=== PATIENT | female | born 2000 | race Two or more races ===

== ENCOUNTER 2021-09-02 09:05 | Observation (INO) | payer MEDICAID ==
[~2021-09-02] VITALS: Ht 162.6 cm; Wt 77.1 kg
[2021-09-02] MEDS ORDERED: PREN-96 PO (10:57)
[2021-09-02] MEDS ORDERED: FERR-7 PO (10:58)
[2021-09-02] MEDS ORDERED: LABE100T4 PO (10:58)
== END 2021-09-02 11:05 | disposition home or self-care (01) ==
LOC: LDRP 09:05
PROVIDERS: ADMIT Obstetrics & Gynecology; ATTEND Obstetrics & Gynecology
DX: O10.913 Unspecified pre-existing hypertension complicating pregnancy, third trimester (principal); Z3A.29 29 weeks gestation of pregnancy
CPT/HCPCS: 59025; 76818; 81002; G0378

== ENCOUNTER 2021-09-08 07:39 | Observation (INO) | payer MEDICAID ==
[~2021-09-08 07:39] MED LIST: FERR-7 PO; LABE100T4 PO; PREN-96 PO
== END 2021-09-08 11:14 | disposition home or self-care (01) ==
LOC: LDRP 08:13
PROVIDERS: ADMIT Obstetrics & Gynecology; ATTEND Obstetrics & Gynecology
DX: O10.913 Unspecified pre-existing hypertension complicating pregnancy, third trimester (principal); Z3A.30 30 weeks gestation of pregnancy
CPT/HCPCS: 59025; 76818; 81002; 94760; G0378

== ENCOUNTER 2021-09-16 07:49 | Observation (INO) | payer MEDICAID | END 2021-09-16 10:05 | disposition home or self-care (01) | LOC: LDRP 08:38 | PROVIDERS: ADMIT Obstetrics & Gynecology; ATTEND Obstetrics & Gynecology | DX: O10.913 Unspecified pre-existing hypertension complicating pregnancy, third trimester (principal); Z3A.31 31 weeks gestation of pregnancy | CPT/HCPCS: 59025; 76818; 81002; 94760; G0378; G0379 ==

== ENCOUNTER 2021-09-23 08:23 | Observation (INO) | payer MEDICAID | END 2021-09-23 10:50 | disposition home or self-care (01) | LOC: LDRP 09:15 | PROVIDERS: ADMIT Obstetrics & Gynecology; ATTEND Obstetrics & Gynecology | DX: O10.913 Unspecified pre-existing hypertension complicating pregnancy, third trimester (principal); Z3A.32 32 weeks gestation of pregnancy | CPT/HCPCS: 59025; 76818; 81002; G0378; G0379 ==

== ENCOUNTER 2021-09-30 08:43 | Observation (INO) | payer MEDICAID | END 2021-09-30 10:14 | disposition home or self-care (01) | LOC: LDRP 08:43 | PROVIDERS: ADMIT Obstetrics & Gynecology; ATTEND Obstetrics & Gynecology | DX: O24.419 Gestational diabetes mellitus in pregnancy, unspecified control (principal); O10.913 Unspecified pre-existing hypertension complicating pregnancy, third trimester; Z3A.33 33 weeks gestation of pregnancy | CPT/HCPCS: 59025; 76818; 81002; 94760; G0378 ==

== ENCOUNTER 2021-10-08 09:00 | Observation (INO) | payer MEDICAID | END 2021-10-08 10:39 | disposition home or self-care (01) | LOC: LDRP 09:00 | PROVIDERS: ADMIT Obstetrics & Gynecology; ATTEND Obstetrics & Gynecology | DX: O13.3 Gestational [pregnancy-induced] hypertension without significant proteinuria, third trimester (principal); Z3A.34 34 weeks gestation of pregnancy | CPT/HCPCS: 59025; 76818; 81002; 94760; G0378 ==

== ENCOUNTER 2021-10-15 09:57 | Observation (INO) | payer MEDICAID | END 2021-10-15 12:25 | disposition home or self-care (01) | LOC: LDRP 10:20 | PROVIDERS: ADMIT Obstetrics & Gynecology; ATTEND Obstetrics & Gynecology | DX: O10.913 Unspecified pre-existing hypertension complicating pregnancy, third trimester (principal); Z3A.35 35 weeks gestation of pregnancy | CPT/HCPCS: 59025; 76818; 81002; 94760; G0378 ==

== ENCOUNTER 2021-10-22 08:27 | Observation (INO) | payer MEDICAID | END 2021-10-22 11:32 | disposition home or self-care (01) | LOC: LDRP 09:27 | PROVIDERS: ADMIT Obstetrics & Gynecology; ATTEND Obstetrics & Gynecology | DX: O10.913 Unspecified pre-existing hypertension complicating pregnancy, third trimester (principal); Z3A.36 36 weeks gestation of pregnancy | CPT/HCPCS: 59025; 76818; 81002; 94760; G0378 ==

== ENCOUNTER 2021-10-28 08:55 | Observation (INO) | payer MEDICAID | END 2021-10-28 11:19 | disposition home or self-care (01) | LOC: LDRP 08:55 | PROVIDERS: ADMIT Obstetrics & Gynecology; ATTEND Obstetrics & Gynecology | DX: O10.913 Unspecified pre-existing hypertension complicating pregnancy, third trimester (principal); Z3A.37 37 weeks gestation of pregnancy | CPT/HCPCS: 59025; 76818; 81002; 94760; G0378 ==

== ENCOUNTER 2021-11-05 08:00 | Observation (INO) | payer MEDICAID | END 2021-11-05 09:46 | disposition home or self-care (01) | LOC: LDRP 08:00 | PROVIDERS: ADMIT Obstetrics & Gynecology; ATTEND Obstetrics & Gynecology | DX: O10.913 Unspecified pre-existing hypertension complicating pregnancy, third trimester (principal); Z3A.38 38 weeks gestation of pregnancy; Z87.891 Personal history of nicotine dependence | CPT/HCPCS: 59025; 76818; 81002; 94760; G0378 ==

== ENCOUNTER 2021-11-05 11:09 | Emergency (ER) | payer MEDICAID ==
[~2021-11-05] VITALS: Ht 157.5 cm; Wt 84.8 kg
[2021-11-05] MEDS ORDERED: PENICILLIN G BENZ 1200000 UNITS/2 ML SYRG IM ONE (11:30)
[2021-11-05 11:54] VITALS: BP 133/87
== END 2021-11-05 12:02 | disposition home or self-care (01) ==
LOC: ER 11:09
DX: O98.113 Syphilis complicating pregnancy, third trimester (principal); Z3A.38 38 weeks gestation of pregnancy
CPT/HCPCS: 96372; 99283; J0561

== ENCOUNTER 2021-11-11 08:47 | Observation (INO) | payer MEDICAID | END 2021-11-11 11:37 | disposition home or self-care (01) | LOC: LDRP 08:47 | PROVIDERS: ADMIT Obstetrics & Gynecology; ATTEND Obstetrics & Gynecology | DX: O40.3XX0 Polyhydramnios, third trimester, not applicable or unspecified (principal); O62.9 Abnormality of forces of labor, unspecified; O16.3 Unspecified maternal hypertension, third trimester; Z3A.39 39 weeks gestation of pregnancy | CPT/HCPCS: 59025; 76818; 81002; 94760; G0378 ==

== ENCOUNTER 2021-11-12 10:53 | Emergency (ER) | payer MEDICAID ==
[~2021-11-12] VITALS: Ht 157.5 cm; Wt 80.7 kg
[~2021-11-12 10:53] MED LIST changes: -FERR-7 PO
[2021-11-12 11:57] VITALS: BP 130/77
[2021-11-12] MEDS ORDERED: PENICILLIN G BENZ 1200000 UNITS/2 ML SYRG IM ONE (12:00)
== END 2021-11-12 12:20 | disposition home or self-care (01) ==
LOC: ER 10:53
DX: O98.113 Syphilis complicating pregnancy, third trimester (principal); O16.3 Unspecified maternal hypertension, third trimester; Z79.899 Other long term (current) drug therapy; Z3A.39 39 weeks gestation of pregnancy
CPT/HCPCS: 96372; 99283; J0561

== ENCOUNTER 2021-11-13 08:41 | Inpatient (IN) | payer MEDICAID ==
[~2021-11-13] VITALS: Ht 154.9 cm; Wt 81.6 kg
[2021-11-13 10:23] LABS: Basophils # (auto) 0.2 10 ^3/uL (0-0.2); Basophils % (auto) 1.1 % (0.0-2.0); Eosinophils # (auto) 0 10 ^3/uL (0-0.8); Eosinophils % (auto) 0.1 % (0.0-7.0); Hematocrit 38.4 % (36.0-46.0); Hemoglobin 13.1 g/dL (12.2-16.2); Lymphocytes % (auto) 6.7 % (10.0-50.0); Mean Corpuscular Hemoglobin 29.9 pg (28.0-32.0); Mean Corpuscular Hgb Conc. 34.1 g/dL (32.0-36.0); Mean Corpuscular Volume 87.7 fL (80.0-100.0); Monocytes # (auto) 0.5 10 ^3/uL (0-1.3); Monocytes % (auto) 3.2 % (0.0-12.0); Neutrophils # (auto) 13.8 10 ^3/uL (1.6-8.6); Neutrophils % (auto) 88.9 % (37.0-80.0); Nucleated Red Blood Cells % 0.1 %; Red Blood Cells 4.38 10^6/uL (4.0-5.20); Red Cell Distribution Width 14.1 % (11.8-14.3); White Blood Cell 15.5 10^3/uL (4.4-10.8)
[2021-11-13 10:37] LABS: Urine Bacteria FEW /hpf (None Seen); Urine Blood Negative /uL (Negative); Urine Mucus FEW (None Seen); Urine Specific Gravity 1.014 (1.001-1.035); Urine WBC 1 /hpf (0 - 5)
[2021-11-13 10:41] LABS: INR 0.93 (0.9-1.15); Partial Thromboplastin Time 27.8 sec (23.6-33.0)
[2021-11-13 11:00] LABS: Protein, Urine 25.4 mg/dL (0.0-11.9)
[2021-11-13 11:06] LABS: Potassium 3.8 mmol/L (3.5-5.1)
[2021-11-13 11:14] LABS: Albumin 2.9 g/dL (3.4-5.0); BUN/Creatinine Ratio 11.6; Bilirubin, Total 0.6 mg/dL (0.2-1.0); Calcium 9.2 mg/dL (8.5-10.1); Total Protein 7.1 g/dL (6.4-8.2); Uric Acid 3.5 mg/dL (2.6-6.0)
[2021-11-13] MEDS ORDERED: WITCH HAZEL-GLYCERIN PAD TOP PRN (12:00)
[2021-11-13] MEDS ORDERED: PHISODERM TOP SOLN 240ML BTL TOP PRN (12:00)
[2021-11-13] MEDS ORDERED: LIDOCAINE 2%HCL (LOCAL ANESTH.) INJ 20ML MDV IJ PRN (12:00)
[2021-11-13] MEDS ORDERED: ePHEDrine SULFATE 50 MG/ML AMP IV ONE (12:00)
[2021-11-13] MEDS ORDERED: LACTATED RINGER'S 1,000 ML IV ONE (12:00)
[2021-11-13] MEDS ORDERED: PROMETHAZINE HCL 25 MG/ML 1ML IV PRN (12:00)
[2021-11-13] MEDS ORDERED: NALOXONE HCL 0.4 MG/ML VIAL IV ONE (12:00)
[2021-11-13] MEDS ORDERED: BUTORPHANOL TARTRATE 2 MG/1 ML VIAL IV PRN ×2 (12:00)
[2021-11-13] MEDS ORDERED: LIDOCAINE HCL 2 %PF INJ 10ML AMP IJ ONE (12:00)
[2021-11-13] MEDS ORDERED: DERMOPLAST 60ML BOTTLE TOP PRN (12:00)
[2021-11-13] MEDS ORDERED: fentaNYL CITRATE 100 MCG/2 ML VL IV ONE (12:00)
[2021-11-13] MEDS ORDERED: PENICILLIN G POT 5MIL/D5 50ML 50 ML IV ONE (12:30)
[2021-11-13] MEDS: LACTATED RINGER'S 1,000 ML IV SCH ×3 (12:42→18:34)
[2021-11-13 13:44] LABS: Alcohol, Urine < 3.0 mg/dL (0-10); Amphetamine Screen, Urine NEGATIVE (NEGATIVE); Barbiturate Scree,Urine NEGATIVE (NEGATIVE); Benzodiazephine Screen, Urine NEGATIVE (NEGATIVE); Cannabinoid Screen, Urine NEGATIVE (NEGATIVE); Cocaine Screen, Urine NEGATIVE (NEGATIVE); Opiate Scree,Urine NEGATIVE (NEGATIVE); Phencyclidine Screen, Urine NEGATIVE (NEGATIVE)
[2021-11-13] MEDS: ROPIVACAINE HCL 200 ML EPI SCH (14:50)
[2021-11-13] MEDS: PENICILLIN G POTASSIUM 2,500,000 UNITS in D5W 5% 50 ML IV SCH ×2 (16:38→20:22)
[2021-11-13] MEDS ORDERED: LACT. RINGERS/OXYTOCIN 20UNITS 500 ML IV ONE ×2 (16:45→17:15)
[2021-11-14] MEDS ORDERED: LACT. RINGERS/OXYTOCIN 20UNITS 1,000 ML IV SCH
[2021-11-14] MEDS: PENICILLIN G POTASSIUM 2,500,000 UNITS in D5W 5% 50 ML IV SCH (00:17)
[2021-11-14] MEDS: ROPIVACAINE HCL 200 ML EPI SCH (01:46)
[2021-11-14] MEDS ORDERED: miSOPROStol 100 mcg TAB SL PRN (05:45)
[2021-11-14] MEDS ORDERED: ACETAMINOPHEN 325 MG TAB PO PRN (05:45)
[2021-11-14] MEDS ORDERED: miSOPROStol 100 mcg TAB PR PRN (05:45)
[2021-11-14] MEDS: IBUPROFEN 600 MG TAB PO PRN ×2 (06:00→17:15)
[2021-11-14 06:45] VITALS: BP 137/74
[2021-11-14 07:06] LABS: RPR Non Reactive (Non Reactive)
[2021-11-14 10:30] VITALS: BP 140/80
[2021-11-14 15:30] VITALS: BP 136/87
[2021-11-14 19:30] VITALS: BP 138/76
[2021-11-14 23:00] VITALS: BP 140/84
[2021-11-15 03:00] VITALS: BP 146/80
[2021-11-15 07:10] VITALS: BP 130/77
[2021-11-15] MEDS: IBUPROFEN 600 MG TAB PO PRN (07:52)
[2021-11-15 07:57] VITALS: BP 130/77
[2021-11-15 11:00] VITALS: BP 138/85
[2021-11-15 15:00] VITALS: BP 142/83
[2021-11-15] MEDS ORDERED: MEASLES, MUMPS & RUBELLA VAC(MMRII) 0.5ML SC ONE (17:00)
== END 2021-11-15 17:20 | disposition home or self-care (01) | DRG 560 ==
LOC: LDRP 08:41 → OBSVTOIN 11:46 → LDRP 11:53
PROVIDERS: ADMIT Obstetrics & Gynecology; ATTEND Obstetrics & Gynecology
PROC: 10E0XZZ Delivery of Products of Conception, External Approach (ICD-10-PCS; principal; 2021-11-14)
PROC: 3E0R3BZ Introduction of Anesthetic Agent into Spinal Canal, Percutaneous Approach (ICD-10-PCS; 2021-11-14)
PROC: 00HU33Z Insertion of Infusion Device into Spinal Canal, Percutaneous Approach (ICD-10-PCS; 2021-11-14)
DX: O13.4 Gestational [pregnancy-induced] hypertension without significant proteinuria, complicating childbirth (principal); Z37.0 Single live birth; O99.824 Streptococcus B carrier state complicating childbirth; Z20.822 Contact with and (suspected) exposure to COVID-19; Z3A.40 40 weeks gestation of pregnancy
CPT/HCPCS: 36415; 59025; 59409; 62282; 80053; 80307; 81001; 81002; 82570; 84156; 84550; 85025; 85610; 85730; 86592; 86850; 86900; 86901; 94760; 94762; 96360; 96361; 96365; 96366; 96372; G0378; J2540; J2590; J7060

== ENCOUNTER 2021-11-17 09:08 | Emergency (ER) | payer MEDICAID ==
[~2021-11-17] VITALS: Ht 157.5 cm; Wt 80.7 kg
[2021-11-17 09:59] VITALS: BP 149/78
[2021-11-17] MEDS: PENICILLIN G BENZ 1200000 UNITS/2 ML SYRG IM ONE (10:27)
== END 2021-11-17 10:30 | disposition home or self-care (01) ==
LOC: ER 09:08
DX: O98.113 Syphilis complicating pregnancy, third trimester (principal); Z3A.38 38 weeks gestation of pregnancy
CPT/HCPCS: 96372; 99283; J0561

== ENCOUNTER → 2022-01-15 | Outpatient (CLI) | payer MEDICAID | END | disposition home or self-care (01) | LOC: LAB 10:03 | PROVIDERS: ATTEND Obstetrics & Gynecology | DX: R76.8 Other specified abnormal immunological findings in serum (principal) | CPT/HCPCS: 84112 ==

== ENCOUNTER → 2024-08-15 | Outpatient (CLI) | payer MEDICAID ==
[~2024-08-15] MED LIST changes: -LABE100T4 PO; +LABE100T7 PO
[2024-08-15 10:00] LABS: Basophils # (auto) 0 10 ^3/uL (0-0.2); Basophils % (auto) 0.3 % (0.0-2.0); Eosinophils # (auto) 0.1 10 ^3/uL (0-0.8); Eosinophils % (auto) 0.8 % (0.0-7.0); Hematocrit 36.2 % (36.0-46.0); Hemoglobin 12.1 g/dL (12.2-16.2); Lymphocytes # (auto) 1.9 10 ^3/uL (0.4-5.4); Lymphocytes % (auto) 17.1 % (10.0-50.0); Mean Corpuscular Hemoglobin 29.1 pg (28.0-32.0); Mean Corpuscular Hgb Conc. 33.6 g/dL (32.0-36.0); Mean Corpuscular Volume 86.6 fL (80.0-100.0); Monocytes # (auto) 0.6 10 ^3/uL (0-1.3); Monocytes % (auto) 5.2 % (0.0-12.0); Neutrophils # (auto) 8.7 10 ^3/uL (1.6-8.6); Neutrophils % (auto) 76.6 % (37.0-80.0); Platelet Count (auto) 311 10^3/uL (140-450); Red Blood Cells 4.18 10^6/uL (4.0-5.20); Red Cell Distribution Width 13.5 % (11.8-14.3); White Blood Cell 11.4 10^3/uL (4.4-10.8)
[2024-08-16 08:06] LABS: RPR Non Reactive (Non Reactive)
[2024-08-16 17:06] LABS: Chlamydia Trachomatis, NAA Negative (Negative); Neisseria gonorrhoeae, NAA Negative (Negative)
== END | disposition home or self-care (01) ==
LOC: LAB 09:39
PROVIDERS: ATTEND Obstetrics & Gynecology
DX: Z11.3 Encounter for screening for infections with a predominantly sexual mode of transmission (principal)
CPT/HCPCS: 36415; 85025; 86592

== ENCOUNTER 2024-08-22 10:00 | Observation (INO) | payer MEDICAID ==
--- NOTE | 2024-08-22 11:32 | DVH ---
BIOPHYSICAL PROFILE HISTORY: PIH Comparison Study: 11/11/2021 TECHNIQUE: Multiple real-time grayscale sonographic images through the gravid uterus of the fetus wi th duplex Doppler color flow and M-mode spectral analysis FINDINGS: BIOPHYSICAL PROFILE: breathing score: 2 movement score: 2 tone score: 2 Quantitative CHARLES score: 2 (CHARLES: 11.0 Cm.) Total score: 8 The cervix is not visualized Single live fetus in cephalic presentation. heart rate 137 beats per minute. Anterior placenta without previa or abruption IMPRESSION: Biophysical profile score: 8
[2024-08-22 11:33] LABS: Basophils # (auto) 0 10 ^3/uL (0-0.2); Basophils % (auto) 0.2 % (0.0-2.0); Eosinophils # (auto) 0.1 10 ^3/uL (0-0.8); Eosinophils % (auto) 0.5 % (0.0-7.0); Hematocrit 35.6 % (36.0-46.0); Hemoglobin 11.8 g/dL (12.2-16.2); Lymphocytes # (auto) 1.8 10 ^3/uL (0.4-5.4); Lymphocytes % (auto) 15.6 % (10.0-50.0); Mean Corpuscular Hemoglobin 28.7 pg (28.0-32.0); Mean Corpuscular Hgb Conc. 33.2 g/dL (32.0-36.0); Mean Corpuscular Volume 86.6 fL (80.0-100.0); Monocytes # (auto) 0.6 10 ^3/uL (0-1.3); Monocytes % (auto) 4.9 % (0.0-12.0); Neutrophils # (auto) 9.2 10 ^3/uL (1.6-8.6); Neutrophils % (auto) 78.8 % (37.0-80.0); Platelet Count (auto) 294 10^3/uL (140-450); Red Blood Cells 4.11 10^6/uL (4.0-5.20); Red Cell Distribution Width 13.6 % (11.8-14.3); White Blood Cell 11.7 10^3/uL (4.4-10.8)
[2024-08-22 11:38] LABS: Alanine Aminotransferase 14 U/L (7-40); Albumin 3.9 g/dL (3.2-4.8); Anion Gap 7 (5-15); BUN/Creatinine Ratio 9.8 (10.0-20.0); Calcium 9.4 mg/dL (8.7-10.4); Carbon Dioxide 23 mmol/L (20-31); Chloride 107 mmol/L (98-107); Glucose 78 mg/dL (74-106); Potassium 3.9 mmol/L (3.5-5.1); Sodium 137 mmol/L (136-145); Uric Acid 4.3 mg/dL (3.1-7.8)
[2024-08-22 11:39] LABS: Alkaline Phosphatase 131 U/L (46-116); Aspartate Aminotransferase 10 U/L (13-40); Bilirubin, Total 0.5 mg/dL (0.2-1.0); Blood Urea Nitrogen 5 mg/dL (9-23); Total Protein 6.7 g/dL (5.7-8.2)
[2024-08-22 11:40] LABS: INR 0.96 (0.9-1.15); Partial Thromboplastin Time 27.3 SEC (24.5-34.5); Prothrombin Time 10.2 sec (9.3-11.8)
--- NOTE | 2024-08-22 11:58 | DVHDS2 ---
Physician Discharge Progress N Final Diagnosis: chtn Operations or Procedures: Operations or Procedures nst,sono Condition on Discharge: Good Disposition: Home Discharge Instructions: Diet: Regular, Cardiac 2g Na,low cholest (2 gm sodium, low cholesterol) Activity: No Restrictions, As Tolerated Medications: labetolol Follow Up Care: Specialist: 4d Discharge Statement: "Patient was advised to return to the ER or call 911 if any headaches, dizziness, shortness of breath, chest pain, abdominal pain, bleeding, fevers, or worsening of medical condition. Patient was counseled about treatment plan, medications, possible side effects, patientverbalized understanding. All questions were answered to the best of my ability. This discharge took greater then 30 minutes in planning, reviewing documentation, counseling the patient, and discussing with other team members." MARLENE RODRIGUEZ DO Aug 22, 2024 11:58
[2024-08-22 12:14] LABS: Urine Bacteria FEW /hpf (None Seen); Urine Blood Negative /uL (Negative); Urine Clarity Turbid (Clear); Urine Color Light-Yellow (Yellow); Urine Mucus FEW (None Seen); Urine Protein, UAD Negative (Negative); Urine Specific Gravity 1.009 (1.001-1.035); Urine Squamous Epithelial Cell MOD /hpf (<5); Urine Urobilinogen Normal (Negative); Urine WBC 2 /hpf (0 - 5)
[2024-08-22 13:02] LABS: Protein, Urine 12.7 mg/dL (1-14)
[2024-08-22 13:05] LABS: Creatinine, Urine 51.02 mg/dL (30.0-125.0); Urine Protein/Creatinine Ratio 0.25
== END 2024-08-22 12:00 | disposition home or self-care (01) ==
LOC: UNDOADMOB 10:00 → LDRP 10:00
PROVIDERS: ADMIT Obstetrics & Gynecology; ATTEND Obstetrics & Gynecology
DX: O13.3 Gestational [pregnancy-induced] hypertension without significant proteinuria, third trimester (principal); Z98.890 Other specified postprocedural states; Z79.899 Other long term (current) drug therapy; Z3A.36 36 weeks gestation of pregnancy
CPT/HCPCS: 36415; 59025; 76818; 80053; 81001; 81002; 82570; 84156; 84550; 85025; 85610; 85730; 94760; G0378

== ENCOUNTER 2024-08-27 09:33 | Observation (INO) | payer MEDICAID ==
--- NOTE | 2024-08-27 11:29 | DVH ---
CLINICAL HISTORY: -induced hypertension. COMPARISON: US BIOPHYSICAL PROFILE on DOS: 08/22/24, BIOPHYSICAL PROFILE on DOS: 10/28/21, BIOPHYSICAL PROFILE on DOS: 10/22/21 TECHNIQUE: biophysical profile was performed. Transabdominal sonographic images of the fetus we re obtained. FINDINGS: The fetus is in cephalic position. heart rate measures 130 BPM. Amniotic fluid index measures 9.6 cm. The placenta is anterior in position. BPP profile is an overall score of 8/8, with 2/2 points for breathing, with at least one episode of breathing over a 30 second duration during a 30 minute observation, 2/2 points for m ovements, with 3 or more discrete body or limb movements, 2/2 points for tone, with one or more episodes of extremity extension with return to flexion, or opening and closing of hand, and 2/ 2 points for amniotic fluid, with at least 1 pocket of amniotic fluid that measures 2 cm in 2 perpend icular planes. IMPRESSION: BPP score of 8/8.
--- NOTE | 2024-08-27 12:25 | DVHDS2 ---
Physician Discharge Progress N Final Diagnosis: chtn Operations or Procedures: Operations or Procedures nst,sono Other Interventions Other Interventions refuses to come back twice per wk understamnds the risk of iufd Condition on Discharge: Good Disposition: Home Discharge Instructions: Diet: Regular Activity: No Restrictions, As Tolerated Medications: na Follow Up Care: Specialist: 3d Discharge Statement: "Patient was advised to return to the ER or call 911 if any headaches, dizziness, shortness of breath, chest pain, abdominal pain, bleeding, fevers, or worsening of medical condition. Patient was counseled about treatment plan, medications, possible side effects, patientverbalized understanding. All questions were answered to the best of my ability. This discharge took greater then 30 minutes in planning, reviewing documentation, counseling the patient, and discussing with other team members." MARLENE RODRIGUEZ DO Aug 27, 2024 12:25
== END 2024-08-27 11:12 | disposition home or self-care (01) ==
LOC: LDRP 09:33
PROVIDERS: ADMIT Obstetrics & Gynecology; ATTEND Obstetrics & Gynecology
DX: O13.3 Gestational [pregnancy-induced] hypertension without significant proteinuria, third trimester (principal); Z98.890 Other specified postprocedural states; Z79.899 Other long term (current) drug therapy; Z3A.37 37 weeks gestation of pregnancy
CPT/HCPCS: 59025; 76818; 81002; 94760; G0378

== ENCOUNTER 2024-09-02 09:55 | Observation (INO) | payer MEDICAID ==
--- NOTE | 2024-09-02 10:43 | DVH ---
BIOPHYSICAL PROFILE HISTORY: PIH TECHNIQUE: Multiple transabdominal real-time grayscale sonographic images through the gravid uterus of the fetus with duplex Doppler color flow and M-mode spectral analysis FINDINGS: BIOPHYSICAL PROFILE: breathing score: 2 movement score: 2 tone score: Quantitative CHARLES score: 2 (CHARLES: 12.6 Cm.) Total score: 8/8 Single intrauterine . heart rate is present measuring 138 beats per minute IMPRESSION: 1. Biophysical profile score: 8/8.
[2024-09-02 11:18] LABS: Basophils # (auto) 0 10 ^3/uL (0-0.2); Basophils % (auto) 0.4 % (0.0-2.0); Eosinophils # (auto) 0.1 10 ^3/uL (0-0.8); Eosinophils % (auto) 0.6 % (0.0-7.0); Hematocrit 35.2 % (36.0-46.0); Hemoglobin 11.9 g/dL (12.2-16.2); Lymphocytes # (auto) 1.7 10 ^3/uL (0.4-5.4); Lymphocytes % (auto) 16.1 % (10.0-50.0); Mean Corpuscular Hemoglobin 29.4 pg (28.0-32.0); Mean Corpuscular Hgb Conc. 33.9 g/dL (32.0-36.0); Mean Corpuscular Volume 86.5 fL (80.0-100.0); Monocytes # (auto) 0.5 10 ^3/uL (0-1.3); Monocytes % (auto) 4.5 % (0.0-12.0); Neutrophils # (auto) 8.2 10 ^3/uL (1.6-8.6); Neutrophils % (auto) 78.4 % (37.0-80.0); Platelet Count (auto) 256 10^3/uL (140-450); Red Blood Cells 4.06 10^6/uL (4.0-5.20); Red Cell Distribution Width 13.9 % (11.8-14.3); White Blood Cell 10.5 10^3/uL (4.4-10.8)
[2024-09-02 11:24] LABS: Urine Bacteria FEW /hpf (None Seen); Urine Blood Negative /uL (Negative); Urine Clarity Turbid (Clear); Urine Color Light-Yellow (Yellow); Urine Protein, UAD Negative (Negative); Urine Squamous Epithelial Cell FEW /hpf (<5); Urine Urobilinogen Normal (Negative); Urine WBC 1 /hpf (0 - 5)
[2024-09-02 11:29] LABS: Alanine Aminotransferase 17 U/L (7-40); Albumin 3.9 g/dL (3.2-4.8); Anion Gap 6 (5-15); BUN/Creatinine Ratio 8.6 (10.0-20.0); Bilirubin, Total 0.4 mg/dL (0.2-1.0); Calcium 9.5 mg/dL (8.7-10.4); Carbon Dioxide 25 mmol/L (20-31); Chloride 106 mmol/L (98-107); Glucose 92 mg/dL (74-106); Potassium 3.7 mmol/L (3.5-5.1); Sodium 137 mmol/L (136-145); Total Protein 6.6 g/dL (5.7-8.2)
[2024-09-02 11:30] LABS: Protein, Urine 13.5 mg/dL (1-14)
[2024-09-02 11:30] LABS: Alkaline Phosphatase 148 U/L (46-116); Aspartate Aminotransferase 12 U/L (13-40); Blood Urea Nitrogen 5 mg/dL (9-23)
[2024-09-02 11:33] LABS: Creatinine, Urine 60.93 mg/dL (30.0-125.0); Urine Protein/Creatinine Ratio 0.22
[2024-09-02 11:37] LABS: INR 0.95 (0.9-1.15); Partial Thromboplastin Time 26.9 SEC (24.5-34.5); Prothrombin Time 10.1 sec (9.3-11.8)
[2024-09-02 12:22] LABS: Uric Acid 4.1 mg/dL (3.1-7.8)
--- NOTE | 2024-09-02 17:26 | DVHDS2 ---
Physician Discharge Progress N Final Diagnosis: CHTN Operations or Procedures: Operations or Procedures NST,SONO Condition on Discharge: Good Disposition: Home Discharge Instructions: Diet: Regular Activity: No Restrictions, As Tolerated Medications: NA Follow Up Care: Specialist: 3D Discharge Statement: "Patient was advised to return to the ER or call 911 if any headaches, dizziness, shortness of breath, chest pain, abdominal pain, bleeding, fevers, or worsening of medical condition. Patient was counseled about treatment plan, medications, possible side effects, patientverbalized understanding. All questions were answered to the best of my ability. This discharge took greater then 30 minutes in planning, reviewing documentation, counseling the patient, and discussing with other team members." MARLENE RODRIGUEZ DO Sep 02, 2024 17:26
== END 2024-09-02 12:34 | disposition home or self-care (01) ==
LOC: LDRP 09:55
PROVIDERS: ADMIT Obstetrics & Gynecology; ATTEND Obstetrics & Gynecology
DX: O13.3 Gestational [pregnancy-induced] hypertension without significant proteinuria, third trimester (principal); Z98.890 Other specified postprocedural states; Z79.899 Other long term (current) drug therapy; Z3A.38 38 weeks gestation of pregnancy
CPT/HCPCS: 36415; 59025; 76818; 80053; 81001; 81002; 82570; 84156; 84550; 85025; 85610; 85730; G0378

== ENCOUNTER 2024-09-05 19:05 | Inpatient (IN) | payer MEDICAID ==
[~2024-09-05] VITALS: Ht 160 cm; Wt 93.9 kg
[2024-09-05] MEDS ORDERED: LACTATED RINGER'S 1,000 ML IV SCH ×2 (19:15)
[2024-09-05] MEDS ORDERED: LIDOCAINE 2%HCL (LOCAL ANESTH.) INJ 20ML MDV IJ PRN ×2 (19:15)
[2024-09-05] MEDS ORDERED: DERMOPLAST 60ML BOTTLE TOP PRN (19:15)
[2024-09-05] MEDS ORDERED: PHISODERM TOP SOLN 240ML BTL TOP PRN (19:15)
[2024-09-05] MEDS ORDERED: NALBUPHINE HCL 10 MG/1ml INJECTION IV PRN (19:15)
[2024-09-05] MEDS ORDERED: WITCH HAZEL-GLYCERIN PAD TOP PRN (19:15)
[2024-09-05 20:19] LABS: Basophils # (auto) 0 10 ^3/uL (0-0.2); Basophils % (auto) 0.4 % (0.0-2.0); Eosinophils # (auto) 0.1 10 ^3/uL (0-0.8); Eosinophils % (auto) 0.9 % (0.0-7.0); Lymphocytes # (auto) 2.5 10 ^3/uL (0.4-5.4); Lymphocytes % (auto) 21.4 % (10.0-50.0); Mean Corpuscular Hemoglobin 28.7 pg (28.0-32.0); Mean Corpuscular Hgb Conc. 33.2 g/dL (32.0-36.0); Mean Corpuscular Volume 86.3 fL (80.0-100.0); Monocytes # (auto) 0.7 10 ^3/uL (0-1.3); Monocytes % (auto) 5.5 % (0.0-12.0); Neutrophils # (auto) 8.4 10 ^3/uL (1.6-8.6); Neutrophils % (auto) 71.8 % (37.0-80.0); Platelet Count (auto) 296 10^3/uL (140-450); Red Blood Cells 4.17 10^6/uL (4.0-5.20); Red Cell Distribution Width 13.5 % (11.8-14.3); White Blood Cell 11.8 10^3/uL (4.4-10.8)
[2024-09-05 20:32] LABS: Creatinine, Urine 12.54 mg/dL (30.0-125.0); Urine Protein/Creatinine Ratio 0.48
[2024-09-05 20:33] LABS: INR 0.93 (0.9-1.15); Partial Thromboplastin Time 26.8 SEC (24.5-34.5); Prothrombin Time 9.9 sec (9.3-11.8)
[2024-09-05 20:36] LABS: Alanine Aminotransferase 17 U/L (7-40); Anion Gap 6 (5-15); BUN/Creatinine Ratio 8.8 (10.0-20.0); Bilirubin, Total 0.4 mg/dL (0.2-1.0); Calcium 9.8 mg/dL (8.7-10.4); Carbon Dioxide 24 mmol/L (20-31); Chloride 107 mmol/L (98-107); Glucose 80 mg/dL (74-106); Potassium 3.6 mmol/L (3.5-5.1); Sodium 137 mmol/L (136-145); Total Protein 6.7 g/dL (5.7-8.2)
[2024-09-05 20:38] LABS: Amphetamine Screen, Urine Neg (NEGATIVE); Barbiturate Scree,Urine Neg (NEGATIVE); Benzodiazephine Screen, Urine Neg (NEGATIVE); Cannabinoid Screen, Urine Neg (NEGATIVE); Cocaine Screen, Urine Neg (NEGATIVE); Opiate Scree,Urine Neg (NEGATIVE); Phencyclidine Screen, Urine Neg (NEGATIVE); Protein, Urine < 6.0 mg/dL (1-14)
[2024-09-05 20:39] LABS: Alkaline Phosphatase 158 U/L (46-116); Aspartate Aminotransferase 12 U/L (13-40); Blood Urea Nitrogen 6 mg/dL (9-23)
[2024-09-05] MEDS: miSOPROStol 50 MCG per PRE-CUT 1/2 TAB PO PRN (21:36)
--- NOTE | 2024-09-05 21:56 | DVHHP2 ---
OB CC & HPI Date Date of Admission: Sep 05, 2024 Patient Identification: : 2 Para: 1 EDC: Sep 15, 2024 EGA: 38.4wks Chief Complaints: Reason for admission: induction of labor Indication for induction: medical complication (cHTN) History of Present Complaints 23yo IUP@38.4wks presents for IOL for cHTN. Takes labetalol 100mg PO BID. Denies UCs/LOF/VB/RUSS/vision changes/RUQ pain. Endorses +FM/+BH. PNC: Routine PNC at [facility] OB with Dr. Muñoz, adequate visits, PNC complicated by iron deficiency anemia. GTT wnl, dating based on LMP c/w first trimester sono, GBS negative. OB hx: uncomplicated in 2021, 7lbs, Female Past Medical History Cardiac: HTN Pulmonary: No pertinent Hx Central Nervous System: No pertinent Hx GI: No pertinent Hx Hemotology/Oncology: No pertinent Hx Hepatobiliary: No pertinent Hx Psychiatric: No pertinent Hx Musculoskeletal: No pertinent Hx Rheumotologic: No pertinent Hx Infectious Disease: No peritnent Hx ENT: No pertinent Hx Renal/: No pertinent Hx Endocrine: No pertinent Hx Dermatology: No pertinent Hx Past Surgical History: No pertinent Hx OB History OB History Care: Good Care Ultrasounds: Normal mid trimester US Obstetrical Complications: None Medical Complications: Other (chronic HTN) Allergies: Coded Allergies: NO KNOWN ALLERGIES (Unverified , 09/02/21) Allergies NKDA Home Meds Reported Medications Labetalol Hcl (Labetalol Hcl) 100 Mg Tab, 100 MG PO BID for 30 Days, MG 09/02/21 Vit W/ Ferrous Fumara ( One Daily) Daily Tab, 1 TAB PO DAILY, #90 TAB 3 Refills 09/02/21 Home Meds current Current Medications Current Medications Medications (Trade) Dose Ordered Sig/Gabriela Route PRN Reason Start Time Stop Time Status Last Admin Lactated Ringer's 1,000 ml @ 125 mls/hr Q8H IV 09/05/24 19:15 Nalbuphine HCl (Nubain) 10 mg Q4HP PRN IV MODERATE PAIN (4-6 PAIN SCALE) 09/05/24 19:15 Witch Carline (Tucks) 1 pad PRN PRN TOP PERINEAL AREA DISCOMFORT 09/05/24 19:15 09/05/24 20:11 DC Sodium Lauryl Sulfate (Phisoderm) 240 ml PRN PRN TOP PERINEAL AREA DISCOMFORT 09/05/24 19:15 Benzocaine (Dermoplast) 1 applic PRN PRN TOP PERINEAL AREA DISCOMFORT 09/05/24 19:15 Lidocaine HCl (Xylocaine) 20 ml ONCE PRN IJ PERINEAL AREA DISCOMFORT 09/05/24 19:15 Lactated Ringer's 1,000 ml @ 125 mls/hr Q8H IV 09/05/24 19:15 09/05/24 20:11 DC Witch Carline (Tucks) 1 pad PRN PRN TOP PERINEAL AREA DISCOMFORT 09/05/24 19:15 Sodium Lauryl Sulfate (Phisoderm) 240 ml PRN PRN TOP PERINEAL AREA DISCOMFORT 09/05/24 19:15 09/05/24 20:11 DC Benzocaine (Dermoplast) 1 applic PRN PRN TOP PERINEAL AREA DISCOMFORT 09/05/24 19:15 09/05/24 20:11 DC Lidocaine HCl (Xylocaine) 20 ml ONCE PRN IJ PERINEAL AREA DISCOMFORT 09/05/24 19:15 09/05/24 20:11 DC Misoprostol (Cytotec) 50 mcg Q4HPRN PRN PO CERVICAL RIPENING 09/05/24 20:15 09/05/24 21:36 Labetalol HCl (Normodyne Tablet) 100 mg BID PO 09/05/24 22:00 Family & Social History Family/Social History Past Family/Social History: denies Blood Type: A+ Rubella: immune RPR/VDRL: Negative GBS Status: Negative HBsAG: Negative Review of Systems Constitutional: No symptom reported Ears, Nose, & Throat: No symptom reported Eyes: No symptom reported Pulmonary/Respiratory: No symptom reported Cardiovascular: No symptom reported Gastrointestinal: No symptom reported Genitourinary: No symptom reported Musculoskeletal: No symptom reported Skin: No symptom reported Psychiatric: No symptom reported Endocrine: No symptom reported Hemotologic/Lymphatic: No symptom reported OB Admission Exam Physical Exam Vitals: VSS, normotensive EFW in office today: 6lbs 15oz, vertex HEENT: TMs Normal, Fontanelles Normal, Nasal Mucosa Normal, Eyes non-injected, Oropharynx Normal, PERRLA, Moist Membranes, EOMI Heart: Rhythm Normal Lungs: Clear Abdomen: Gravid Extremities: Normal Reflexes: Normal Pelvic Exam: SVE by RN: /-3 Membranes: Intact Heart Rate: 130's Accelerations: Accelerations Present Decelerations: No Decelerations Correction Variability: Average (6-25) Contractions on Admission: < 5 Minutes Apart Intensity: Mild OB Plan Plan Admitting Diagnosis: cHTN Plan: Induction Induction Methd: Misoprostol protocol Other Plan: A: 23yo IUP@38.4wks Induction of Labor Chronic HTN Category I EFM Intact Membranes GBS negative P: Admit to L&D Informed consent obtained Discussed risks, benefits, alternatives of IOL for cHTN with pt. Pt consents to IOL with PO cytotec. monitoring per order Routine labs and PreE labs ordered Pain mgmt PRN Frequent position changes in and out of bed encouraged Limit SVE unless necessary Intrauterine resuscitation PRN Anticipate KUSUM is co-managing care with Dr. Muñoz. Continue labetalol 100mg PO BID inpatient. JAYSON RITCHIE CNM Sep 05, 2024 21:56
[2024-09-05] MEDS: LABETALOL HCL 200 MG TAB PO SCH (22:06)
--- NOTE | 2024-09-06 02:15 | DVHPN2 ---
[facility] Labor Progress Note Date and Time Seen Date Seen: Sep 06, 2024 Time Seen: 01:48 Subjective Patient reports: No new complaints Subjective Comment Pt consents to carlos balloon insertion after discussion. Denies RSUS/vision changes/RUQ pain. Objective Vital Signs VSS, see chart Urine P/C ratio is incalculable Laboratory Tests Test 09/05/24 19:30 09/05/24 19:42 Range/Units Urine Creatinine 12.54 L 30.0-125.0 mg/dL -U-r-i-n-e- -O-g-p-t-e-i-n-/-K-q-u-q-l-p-n-i-n-e- -R-a-t--i-o- -0-.-4-8- Urine Total Protein < 6.0 1-14 mg/dL Urine Opiates Screen Neg NEGATIVE Urine Fentanyl Screen Neg NEGATIVE Urine Barbiturates Screen Neg NEGATIVE Urine Phencyclidine Screen Neg NEGATIVE Urine Amphetamines Screen Neg NEGATIVE Urine Benzodiazepines Screen Neg NEGATIVE Urine Cocaine Screen Neg NEGATIVE Urine Cannabinoids Screen Neg NEGATIVE White Blood Count 11.8 H 4.4-10.8 10^3/uL Red Blood Count 4.17 4.0-5.20 10^6/uL Hemoglobin 12.0 L 12.2-16.2 g/dL Hematocrit 36.0 36.0-46.0 % Mean Corpuscular Volume 86.3 80.0-100.0 fL Mean Corpuscular Hemoglobin 28.7 28.0-32.0 pg Mean Corpuscular Hemoglobin Concent 33.2 32.0-36.0 g/dL Red Cell Distribution Width 13.5 11.8-14.3 % Platelet Count 296 140-450 10^3/uL Mean Platelet Volume 9.2 6.9-10.8 fL Neutrophils (%) (Auto) 71.8 37.0-80.0 % Lymphocytes (%) (Auto) 21.4 10.0-50.0 % Monocytes (%) (Auto) 5.5 0.0-12.0 % Eosinophils (%) (Auto) 0.9 0.0-7.0 % Basophils (%) (Auto) 0.4 0.0-2.0 % Neutrophils # (Auto) 8.4 1.6-8.6 10 ^3/uL Lymphocytes # (Auto) 2.5 0.4-5.4 10 ^3/uL Monocytes # (Auto) 0.7 0-1.3 10 ^3/uL Eosinophils # (Auto) 0.1 0-0.8 10 ^3/uL Basophils # (Auto) 0 0-0.2 10 ^3/uL Nucleated Red Blood Cells 0.0 % Prothrombin Time 9.9 9.3-11.8 sec Prothrombin Time INR 0.93 0.9-1.15 Activated Partial Thromboplast Time 26.8 24.5-34.5 SEC Sodium Level 137 136-145 mmol/L Potassium Level 3.6 3.5-5.1 mmol/L Chloride Level 107 98-107 mmol/L Carbon Dioxide Level 24 20-31 mmol/L Anion Gap 6 5-15 Blood Urea Nitrogen 6 L 9-23 mg/dL Creatinine 0.68 0.550-1.02 mg/dL Glomerular Filtration Rate Calc 124 >90 mL/min BUN/Creatinine Ratio 8.8 L 10.0-20.0 Serum Glucose 80 74-106 mg/dL Uric Acid 4.4 3.1-7.8 mg/dL Calcium Level 9.8 8.7-10.4 mg/dL Total Bilirubin 0.4 0.2-1.0 mg/dL Aspartate Amino Transferase (AST) 12 L 13-40 U/L Alanine Aminotransferase (ALT) 17 7-40 U/L Alkaline Phosphatase 158 H 46-116 U/L Total Protein 6.7 5.7-8.2 g/dL Albumin 4.0 3.2-4.8 g/dL Rapid Plasma Reagin Pending Treponema pallidum Ab (TP-PA) Pending Hepatitis C Antibody Negative Negative Vital Signs Date Time Temp Pulse Resp B/P (MAP) Pulse Ox O2 Delivery O2 Flow Rate FiO2 09/06/24 09:59 89 134/76 Monitoring Method Monitoring Method: External Heart Rate Heart Rate Baseline: 125 Heart Rate Variability: Moderate Presence of FHR Accelerations: Yes Presence of FHR Decelerations: No Are all 5 Components of the FH: Yes Contractions Contractions Frequency: Occasional Duration of Contraction: 80 Contractions Intensity: Mild Contractions Resting Tone: Relaxed Membranes Membranes: Intact Vaginal Exam Vag Exam Deferred: No (SVE: 1.5/60/-3, carlos balloon placed with 60ml sterile water) Medications Medications - Pitocin: No Medications - Pain Medications: PRN Medication - Epidural: No Medication - Other 1 dose of PO cytotec given Lab Results Lab Results Vital Signs Date Time Temp Pulse Resp B/P (MAP) Pulse Ox O2 Delivery O2 Flow Rate FiO2 09/06/24 09:59 89 134/76 Current Medications Medications (Trade) Dose Ordered Sig/Gabriela Start Time Stop Time Status Last Admin Dose Admin Lactated Ringer's 1,000 ml @ 125 mls/hr Q8H 09/05/24 19:15 Nalbuphine HCl (Nubain) 10 mg Q4HP PRN 09/05/24 19:15 Witch Carline (Tucks) 1 pad PRN PRN 09/05/24 19:15 09/05/24 20:11 DC Sodium Lauryl Sulfate (Phisoderm) 240 ml PRN PRN 09/05/24 19:15 09/06/24 03:21 240 ML Benzocaine (Dermoplast) 1 applic PRN PRN 09/05/24 19:15 09/06/24 03:21 1 APPLIC Lidocaine HCl (Xylocaine) 20 ml ONCE PRN 09/05/24 19:15 Lactated Ringer's 1,000 ml @ 125 mls/hr Q8H 09/05/24 19:15 09/05/24 20:11 DC Witch Carline (Tucks) 1 pad PRN PRN 09/05/24 19:15 09/06/24 03:21 1 PAD Sodium Lauryl Sulfate (Phisoderm) 240 ml PRN PRN 09/05/24 19:15 09/05/24 20:11 DC Benzocaine (Dermoplast) 1 applic PRN PRN 09/05/24 19:15 09/05/24 20:11 DC Lidocaine HCl (Xylocaine) 20 ml ONCE PRN 09/05/24 19:15 09/05/24 20:11 DC Misoprostol (Cytotec) 50 mcg Q4HPRN PRN 09/05/24 20:15 09/06/24 03:20 50 MCG Labetalol HCl (Normodyne Tablet) 100 mg BID 09/05/24 22:00 09/06/24 09:59 100 MG Oxytocin 1,000 ml @ 6 ml/hr Q24H 09/06/24 08:00 09/06/24 09:16 6 ML/HR Oxytocin 500 ml @ 999 mls/hr Q31M ONCE 09/06/24 08:00 09/06/24 08:30 DC 09/06/24 17:58 999 MLS/HR Oxytocin 500 ml @ 125 mls/hr Q4H ONCE 09/06/24 08:30 09/06/24 12:29 DC 09/06/24 19:01 125 MLS/HR Cefazolin Sodium/ Dextrose 50 ml @ 50 mls/hr ONCE ONCE 09/06/24 18:00 09/06/24 18:59 DC 09/06/24 18:20 50 MLS/HR Ibuprofen (Motrin Tablet) 600 mg Q6HP PRN 09/06/24 21:30 Acetaminophen (Tylenol Tablet) 650 mg Q4HP PRN 09/06/24 21:30 Ondansetron HCl (Zofran Po) 4 mg Q4HPRN PRN 09/06/24 21:30 Laboratory Tests Test 09/05/24 19:42 09/05/24 19:30 Range/Units White Blood Count 11.8 H 4.4-10.8 10^3/uL Red Blood Count 4.17 4.0-5.20 10^6/uL Hemoglobin 12.0 L 12.2-16.2 g/dL Hematocrit 36.0 36.0-46.0 % Mean Corpuscular Volume 86.3 80.0-100.0 fL Mean Corpuscular Hemoglobin 28.7 28.0-32.0 pg Mean Corpuscular Hemoglobin Concent 33.2 32.0-36.0 g/dL Red Cell Distribution Width 13.5 11.8-14.3 % Platelet Count 296 140-450 10^3/uL Mean Platelet Volume 9.2 6.9-10.8 fL Neutrophils (%) (Auto) 71.8 37.0-80.0 % Lymphocytes (%) (Auto) 21.4 10.0-50.0 % Monocytes (%) (Auto) 5.5 0.0-12.0 % Eosinophils (%) (Auto) 0.9 0.0-7.0 % Basophils (%) (Auto) 0.4 0.0-2.0 % Neutrophils # (Auto) 8.4 1.6-8.6 10 ^3/uL Lymphocytes # (Auto) 2.5 0.4-5.4 10 ^3/uL Monocytes # (Auto) 0.7 0-1.3 10 ^3/uL Eosinophils # (Auto) 0.1 0-0.8 10 ^3/uL Basophils # (Auto) 0 0-0.2 10 ^3/uL Nucleated Red Blood Cells 0.0 % Prothrombin Time 9.9 9.3-11.8 sec Prothrombin Time INR 0.93 0.9-1.15 Activated Partial Thromboplast Time 26.8 24.5-34.5 SEC Sodium Level 137 136-145 mmol/L Potassium Level 3.6 3.5-5.1 mmol/L Chloride Level 107 98-107 mmol/L Carbon Dioxide Level 24 20-31 mmol/L Anion Gap 6 5-15 Blood Urea Nitrogen 6 L 9-23 mg/dL Creatinine 0.68 0.550-1.02 mg/dL Glomerular Filtration Rate Calc 124 >90 mL/min BUN/Creatinine Ratio 8.8 L 10.0-20.0 Serum Glucose 80 74-106 mg/dL Uric Acid 4.4 3.1-7.8 mg/dL Calcium Level 9.8 8.7-10.4 mg/dL Total Bilirubin 0.4 0.2-1.0 mg/dL Aspartate Amino Transferase (AST) 12 L 13-40 U/L Alanine Aminotransferase (ALT) 17 7-40 U/L Alkaline Phosphatase 158 H 46-116 U/L Total Protein 6.7 5.7-8.2 g/dL Albumin 4.0 3.2-4.8 g/dL Rapid Plasma Reagin Pending Treponema pallidum Ab (TP-PA) Pending Hepatitis C Antibody Negative Negative Urine Creatinine 12.54 L 30.0-125.0 mg/dL Urine Protein/Creatinine Ratio 0.48 Urine Total Protein < 6.0 1-14 mg/dL Urine Opiates Screen Neg NEGATIVE Urine Fentanyl Screen Neg NEGATIVE Urine Barbiturates Screen Neg NEGATIVE Urine Phencyclidine Screen Neg NEGATIVE Urine Amphetamines Screen Neg NEGATIVE Urine Benzodiazepines Screen Neg NEGATIVE Urine Cocaine Screen Neg NEGATIVE Urine Cannabinoids Screen Neg NEGATIVE Assessment Assessment 23yo IUP@38.5wks Induction of Labor Chronic HTN Category I EFM Intact Membranes GBS negative Plan Plan RN to apply traction to carlos balloon every hour. monitoring per order Pain mgmt PRN Frequent position changes in and out of bed encouraged Limit SVE unless necessary Intrauterine resuscitation PRN Anticipate KUSUM is co-managing care with Dr. Muñoz. Plan discussed with: Patient, Spouse CHAUJAYSON NOE Sep 06, 2024 02:15
[2024-09-06] MEDS: WITCH HAZEL-GLYCERIN PAD TOP PRN (03:21)
[2024-09-06] MEDS: DERMOPLAST 60ML BOTTLE TOP PRN (03:21)
[2024-09-06] MEDS: PHISODERM TOP SOLN 240ML BTL TOP PRN (03:21)
[2024-09-06] MEDS: LACT. RINGERS/OXYTOCIN 20UNITS 1,000 ML IV SCH (09:16)
--- NOTE | 2024-09-06 13:09 | DVHPN2 ---
OB Labor Progress Note Date and Time Seen Date Seen: Sep 06, 2024 Time Seen: 13:07 Subjective Patient reports: No new complaints Objective Vital Signs VSS afeb Monitoring Method Monitoring Method: Internal Heart Rate Heart Rate Baseline: 135 Heart Rate Variability: Moderate Presence of FHR Accelerations: Yes Presence of FHR Decelerations: No Contractions Contractions Intensity: Moderate Membranes Membranes: Ruptured (AROM clear) Amniotic Fluid Color: Clear Vaginal Exam Vag Exam Deferred: No Vaginal Exam Effacement: 70 Vaginal Exam Station: -2 Vaginal Exam Presentation: VTX Vaginal Exam Show: None Medications Medications - Pitocin: Yes Medication - Epidural: No Lab Results Lab Results Vital Signs Date Time Temp Pulse Resp B/P (MAP) Pulse Ox O2 Delivery O2 Flow Rate FiO2 09/06/24 09:59 89 134/76 Current Medications Medications (Trade) Dose Ordered Sig/Gabriela Start Time Stop Time Status Last Admin Dose Admin Lactated Ringer's 1,000 ml @ 125 mls/hr Q8H 09/05/24 19:15 Nalbuphine HCl (Nubain) 10 mg Q4HP PRN 09/05/24 19:15 Witch Carline (Tucks) 1 pad PRN PRN 09/05/24 19:15 09/05/24 20:11 DC Sodium Lauryl Sulfate (Phisoderm) 240 ml PRN PRN 09/05/24 19:15 09/06/24 03:21 240 ML Benzocaine (Dermoplast) 1 applic PRN PRN 09/05/24 19:15 09/06/24 03:21 1 APPLIC Lidocaine HCl (Xylocaine) 20 ml ONCE PRN 09/05/24 19:15 Lactated Ringer's 1,000 ml @ 125 mls/hr Q8H 09/05/24 19:15 09/05/24 20:11 DC Witch Carline (Tucks) 1 pad PRN PRN 09/05/24 19:15 09/06/24 03:21 1 PAD Sodium Lauryl Sulfate (Phisoderm) 240 ml PRN PRN 09/05/24 19:15 09/05/24 20:11 DC Benzocaine (Dermoplast) 1 applic PRN PRN 09/05/24 19:15 09/05/24 20:11 DC Lidocaine HCl (Xylocaine) 20 ml ONCE PRN 09/05/24 19:15 09/05/24 20:11 DC Misoprostol (Cytotec) 50 mcg Q4HPRN PRN 09/05/24 20:15 09/06/24 03:20 50 MCG Labetalol HCl (Normodyne Tablet) 100 mg BID 09/05/24 22:00 09/06/24 09:59 100 MG Oxytocin 1,000 ml @ 6 ml/hr Q24H 09/06/24 08:00 09/06/24 09:16 6 ML/HR Oxytocin 500 ml @ 999 mls/hr Q31M ONCE 09/06/24 08:00 09/06/24 08:30 DC Oxytocin 500 ml @ 125 mls/hr Q4H ONCE 09/06/24 08:30 09/06/24 12:29 DC Laboratory Tests Test 09/05/24 19:42 09/05/24 19:30 Range/Units White Blood Count 11.8 H 4.4-10.8 10^3/uL Red Blood Count 4.17 4.0-5.20 10^6/uL Hemoglobin 12.0 L 12.2-16.2 g/dL Hematocrit 36.0 36.0-46.0 % Mean Corpuscular Volume 86.3 80.0-100.0 fL Mean Corpuscular Hemoglobin 28.7 28.0-32.0 pg Mean Corpuscular Hemoglobin Concent 33.2 32.0-36.0 g/dL Red Cell Distribution Width 13.5 11.8-14.3 % Platelet Count 296 140-450 10^3/uL Mean Platelet Volume 9.2 6.9-10.8 fL Neutrophils (%) (Auto) 71.8 37.0-80.0 % Lymphocytes (%) (Auto) 21.4 10.0-50.0 % Monocytes (%) (Auto) 5.5 0.0-12.0 % Eosinophils (%) (Auto) 0.9 0.0-7.0 % Basophils (%) (Auto) 0.4 0.0-2.0 % Neutrophils # (Auto) 8.4 1.6-8.6 10 ^3/uL Lymphocytes # (Auto) 2.5 0.4-5.4 10 ^3/uL Monocytes # (Auto) 0.7 0-1.3 10 ^3/uL Eosinophils # (Auto) 0.1 0-0.8 10 ^3/uL Basophils # (Auto) 0 0-0.2 10 ^3/uL Nucleated Red Blood Cells 0.0 % Prothrombin Time 9.9 9.3-11.8 sec Prothrombin Time INR 0.93 0.9-1.15 Activated Partial Thromboplast Time 26.8 24.5-34.5 SEC Sodium Level 137 136-145 mmol/L Potassium Level 3.6 3.5-5.1 mmol/L Chloride Level 107 98-107 mmol/L Carbon Dioxide Level 24 20-31 mmol/L Anion Gap 6 5-15 Blood Urea Nitrogen 6 L 9-23 mg/dL Creatinine 0.68 0.550-1.02 mg/dL Glomerular Filtration Rate Calc 124 >90 mL/min BUN/Creatinine Ratio 8.8 L 10.0-20.0 Serum Glucose 80 74-106 mg/dL Uric Acid 4.4 3.1-7.8 mg/dL Calcium Level 9.8 8.7-10.4 mg/dL Total Bilirubin 0.4 0.2-1.0 mg/dL Aspartate Amino Transferase (AST) 12 L 13-40 U/L Alanine Aminotransferase (ALT) 17 7-40 U/L Alkaline Phosphatase 158 H 46-116 U/L Total Protein 6.7 5.7-8.2 g/dL Albumin 4.0 3.2-4.8 g/dL Rapid Plasma Reagin Pending Treponema pallidum Ab (TP-PA) Pending Hepatitis C Antibody Negative Negative Urine Creatinine 12.54 L 30.0-125.0 mg/dL Urine Protein/Creatinine Ratio 0.48 Urine Total Protein < 6.0 1-14 mg/dL Urine Opiates Screen Neg NEGATIVE Urine Fentanyl Screen Neg NEGATIVE Urine Barbiturates Screen Neg NEGATIVE Urine Phencyclidine Screen Neg NEGATIVE Urine Amphetamines Screen Neg NEGATIVE Urine Benzodiazepines Screen Neg NEGATIVE Urine Cocaine Screen Neg NEGATIVE Urine Cannabinoids Screen Neg NEGATIVE Assessment Assessment Term IUP , labor Categ 1 FHR s/p Amniotomy and IUPC/FSE placement, tolerated well Plan Plan Continue labor mgmt Epidural discussed w/ patient Continue Pitocin Plan discussed with: Patient BRIGID KUMAR Sep 06, 2024 13:09
[2024-09-06] MEDS: ROPIVACAINE HCL 200 ML ONE (15:16)
--- NOTE | 2024-09-06 16:28 | DVHPN2 ---
CNM Labor Progress Note Date and Time Seen Date Seen: Sep 06, 2024 Time Seen: 15:30 Subjective Patient reports: No new complaints Subjective Comment Pt denies RUSS/vision changes/RUQ pain. Objective Vital Signs VSS, normotensive Monitoring Method Monitoring Method: Internal Heart Rate Heart Rate Baseline: 140 Heart Rate Variability: Minimal Presence of FHR Accelerations: No Presence of FHR Decelerations: Yes Heart Rate Type of Decel: Late Decelerations (recurrent) Are all 5 Components of the FH: Yes Contractions Contractions Frequency: Other (q2-3 min) Duration of Contraction: 90 Contractions Intensity: Moderate Contractions Resting Tone: Relaxed Membranes Membranes: Ruptured Amniotic Fluid Color: Clear Vaginal Exam Vag Exam Deferred: No Vaginal Exam Dilation: 6 Vaginal Exam Effacement: 80 Vaginal Exam Station: 0 Vaginal Exam Presentation: VTX Vaginal Exam Show: Small Medications Medications - Pitocin: No (off) Medication - Epidural: Yes Lab Results Lab Results Vital Signs Date Time Temp Pulse Resp B/P (MAP) Pulse Ox O2 Delivery O2 Flow Rate FiO2 09/06/24 09:59 89 134/76 Current Medications Medications (Trade) Dose Ordered Sig/Gabriela Start Time Stop Time Status Last Admin Dose Admin Lactated Ringer's 1,000 ml @ 125 mls/hr Q8H 09/05/24 19:15 Nalbuphine HCl (Nubain) 10 mg Q4HP PRN 09/05/24 19:15 Witch Carline (Tucks) 1 pad PRN PRN 09/05/24 19:15 09/05/24 20:11 DC Sodium Lauryl Sulfate (Phisoderm) 240 ml PRN PRN 09/05/24 19:15 09/06/24 03:21 240 ML Benzocaine (Dermoplast) 1 applic PRN PRN 09/05/24 19:15 09/06/24 03:21 1 APPLIC Lidocaine HCl (Xylocaine) 20 ml ONCE PRN 09/05/24 19:15 Lactated Ringer's 1,000 ml @ 125 mls/hr Q8H 09/05/24 19:15 09/05/24 20:11 DC Witch Acrline (Tucks) 1 pad PRN PRN 09/05/24 19:15 09/06/24 03:21 1 PAD Sodium Lauryl Sulfate (Phisoderm) 240 ml PRN PRN 09/05/24 19:15 09/05/24 20:11 DC Benzocaine (Dermoplast) 1 applic PRN PRN 09/05/24 19:15 09/05/24 20:11 DC Lidocaine HCl (Xylocaine) 20 ml ONCE PRN 09/05/24 19:15 09/05/24 20:11 DC Misoprostol (Cytotec) 50 mcg Q4HPRN PRN 09/05/24 20:15 09/06/24 03:20 50 MCG Labetalol HCl (Normodyne Tablet) 100 mg BID 09/05/24 22:00 09/06/24 09:59 100 MG Oxytocin 1,000 ml @ 6 ml/hr Q24H 09/06/24 08:00 09/06/24 09:16 6 ML/HR Oxytocin 500 ml @ 999 mls/hr Q31M ONCE 09/06/24 08:00 09/06/24 08:30 DC 09/06/24 17:58 999 MLS/HR Oxytocin 500 ml @ 125 mls/hr Q4H ONCE 09/06/24 08:30 09/06/24 12:29 DC 09/06/24 19:01 125 MLS/HR Cefazolin Sodium/ Dextrose 50 ml @ 50 mls/hr ONCE ONCE 09/06/24 18:00 09/06/24 18:59 DC 09/06/24 18:20 50 MLS/HR Ibuprofen (Motrin Tablet) 600 mg Q6HP PRN 09/06/24 21:30 Acetaminophen (Tylenol Tablet) 650 mg Q4HP PRN 09/06/24 21:30 Ondansetron HCl (Zofran Po) 4 mg Q4HPRN PRN 09/06/24 21:30 Laboratory Tests Test 09/05/24 19:42 09/05/24 19:30 Range/Units White Blood Count 11.8 H 4.4-10.8 10^3/uL Red Blood Count 4.17 4.0-5.20 10^6/uL Hemoglobin 12.0 L 12.2-16.2 g/dL Hematocrit 36.0 36.0-46.0 % Mean Corpuscular Volume 86.3 80.0-100.0 fL Mean Corpuscular Hemoglobin 28.7 28.0-32.0 pg Mean Corpuscular Hemoglobin Concent 33.2 32.0-36.0 g/dL Red Cell Distribution Width 13.5 11.8-14.3 % Platelet Count 296 140-450 10^3/uL Mean Platelet Volume 9.2 6.9-10.8 fL Neutrophils (%) (Auto) 71.8 37.0-80.0 % Lymphocytes (%) (Auto) 21.4 10.0-50.0 % Monocytes (%) (Auto) 5.5 0.0-12.0 % Eosinophils (%) (Auto) 0.9 0.0-7.0 % Basophils (%) (Auto) 0.4 0.0-2.0 % Neutrophils # (Auto) 8.4 1.6-8.6 10 ^3/uL Lymphocytes # (Auto) 2.5 0.4-5.4 10 ^3/uL Monocytes # (Auto) 0.7 0-1.3 10 ^3/uL Eosinophils # (Auto) 0.1 0-0.8 10 ^3/uL Basophils # (Auto) 0 0-0.2 10 ^3/uL Nucleated Red Blood Cells 0.0 % Prothrombin Time 9.9 9.3-11.8 sec Prothrombin Time INR 0.93 0.9-1.15 Activated Partial Thromboplast Time 26.8 24.5-34.5 SEC Sodium Level 137 136-145 mmol/L Potassium Level 3.6 3.5-5.1 mmol/L Chloride Level 107 98-107 mmol/L Carbon Dioxide Level 24 20-31 mmol/L Anion Gap 6 5-15 Blood Urea Nitrogen 6 L 9-23 mg/dL Creatinine 0.68 0.550-1.02 mg/dL Glomerular Filtration Rate Calc 124 >90 mL/min BUN/Creatinine Ratio 8.8 L 10.0-20.0 Serum Glucose 80 74-106 mg/dL Uric Acid 4.4 3.1-7.8 mg/dL Calcium Level 9.8 8.7-10.4 mg/dL Total Bilirubin 0.4 0.2-1.0 mg/dL Aspartate Amino Transferase (AST) 12 L 13-40 U/L Alanine Aminotransferase (ALT) 17 7-40 U/L Alkaline Phosphatase 158 H 46-116 U/L Total Protein 6.7 5.7-8.2 g/dL Albumin 4.0 3.2-4.8 g/dL Rapid Plasma Reagin Pending Treponema pallidum Ab (TP-PA) Pending Hepatitis C Antibody Negative Negative Urine Creatinine 12.54 L 30.0-125.0 mg/dL Urine Protein/Creatinine Ratio 0.48 Urine Total Protein < 6.0 1-14 mg/dL Urine Opiates Screen Neg NEGATIVE Urine Fentanyl Screen Neg NEGATIVE Urine Barbiturates Screen Neg NEGATIVE Urine Phencyclidine Screen Neg NEGATIVE Urine Amphetamines Screen Neg NEGATIVE Urine Benzodiazepines Screen Neg NEGATIVE Urine Cocaine Screen Neg NEGATIVE Urine Cannabinoids Screen Neg NEGATIVE Assessment Assessment 23yo IUP@38.5wks Induction of Labor Chronic HTN Category II EFM ROM, clear GBS negative Plan Plan Amnioinfusion ordered, 500ml NS bolus and 100ml/hr maintenance for 1L Continuous monitoring Epidural in place Frequent position changes in bed encouraged Dr. Muñoz reviewed EFM and consulted, plan is to continue with labor, Intrauterine resuscitation and amnioinfusion. Anticipate Plan discussed with: Patient, Spouse JAYSON RITCHIE CNM Sep 06, 2024 16:28
[2024-09-06] MEDS: LACT. RINGERS/OXYTOCIN 20UNITS 500 ML IV ONE ×2 (17:58→19:01)
[2024-09-06] MEDS: ceFAZolin 2 GM/D5W50ml 50 ML IV ONE (18:20)
[2024-09-06] MEDS ORDERED: TRANEXAMIC ACID 1,000 mg/10ml INJ VIAL IV ONE (19:48)
[2024-09-06 20:00] VITALS: BP 139/93; PULSE 110; RESP 16; TEMP 99.1
--- NOTE | 2024-09-06 20:07 | LDN2 ---
Labor and Delivery Note Date 09/06/24 Age 25 2 Para 2 now AB 0 EDC 09/15/24 EGA 38.5wks Diagnosis IOL for cHTN then Vaginal Delivery: VTX Vacuum Assisted: No Placenta: Manual (by Dr. Muñoz) Sex: Female Weight pending Apgars 8/9 Nuchal Cord Present: No Nuchal Cord Transected: No Amniotic Fluid: Clear Anesthesia epidural Episiotomy: No Extension: No Lacerations: No Repaired with n/a EBL QBL 300ml Complications none Conditions stable Hand Funnel Coater Jeannette Comments/Significant Med Ke Dr. Muñoz is managing cHTN, plan to continue PO labetalol. Delivery Summary At 1723 this 23yo now delivered a viable Female infant by w/ APGARS 8/9. JESSICA presentation. Infant placed skin to skin on pts chest. Cord clamped and cut after 60 seconds. Cord blood and cord gases sent. Venous pH 7.35. Intact 3- vessel cord placenta manually removed by Cleo Godoy. Manual sweep done by Dr. Muñoz, uterus cleared of clots. Pitocin IV bolus started. Placenta sent to pathology. Patient had epidural anesthesia. Cervix/vagina inspected (intact) and labia/perineum (intact). Fundus at U, firm, midline, and light lochia. QBL 300ml. VSS. Count correct x2. Patient to care and baby to couplet care, both stable. Ancef 2g IVPB x1 ordered. JAYSON RITCHIE CNM Sep 06, 2024 20:07
[2024-09-06] MEDS ORDERED: ONDANSETRON ODT 4 MG TAB PO PRN (21:30)
[2024-09-06 22:00] VITALS: BP 136/76
[2024-09-06 22:30] VITALS: BP 144/76; PULSE 106; RESP 18; O2SAT 97
[2024-09-06 23:00] VITALS: BP 121/69; PULSE 102; RESP 15; TEMP 98.9
[2024-09-07] VITALS (7 sets, daily range): BP systolic 119–130; BP diastolic 61–81; PULSE 82–92; RESP 14–18; TEMP 97.5–98; O2SAT 97–98
[2024-09-07] MEDS ORDERED: DOCU-94 PO (00:11)
[2024-09-07] MEDS ORDERED: IBU600T PO (00:11)
--- NOTE | 2024-09-07 00:20 | DVHDS2 ---
Obstetrics Discharge Summary Obstetrics Discharge Summary Date of Admission: Sep 05, 2024 Date of Discharge: Sep 07, 2024 Reason For Admission: Induction of Labor (cHTN) Procedures: NST, Mgmt of Med Complication (cHTN) Intrapartum Procedures: Spontaneous vaginal deliv Procedures: Antibiotics, Hct/date: (09/07/24), Hgb/date: (09/07/24) Operative Complicat: None Discharge Diagnosis: Term -Delivered Discharge Information: Activity (as tolerated, no heavy lifting and nothing in the vagina for 6 weeks), Diet (Routine), Medications (Rx sent), Instructions (Routine), Discharge to (Home), Accompanied by (partner), Discarge date (09/07/24) JAYSON RITCHIE CNM Sep 07, 2024 00:20
--- NOTE | 2024-09-07 00:20 | DVHPN2 ---
Progress Note Date Seen: Sep 07, 2024 Subjective S: bleeding is less, eating food without issues, denies lightheaded/dizziness, pain well controlled with oral medications, no concerns with urinating, no flatus/BM yet, ambulating well, and formula. Denies RUSS/vision changes/RUQ pain. vital signs Vital Sign Date Time Temp Pulse Resp B/P (MAP) Pulse Ox O2 Delivery O2 Flow Rate FiO2 09/06/24 20:00 Room Air 09/06/24 09:59 89 134/76 Total Intake and Output 09/06/24 09/06/24 09/07/24 15:00 23:00 07:00 Output Total 1800 ml Balance -1800 ml medications Current Medications Medications Dose Ordered Sig/Gabriela Route Start Time Stop Time Status Last Admin Dose Admin Lactated Ringer's 1,000 ml @ 125 mls/hr Q8H IV 09/05/24 19:15 Sodium Lauryl Sulfate 240 ml PRN PRN TOP 09/05/24 19:15 09/06/24 03:21 240 ML Benzocaine 1 applic PRN PRN TOP 09/05/24 19:15 09/06/24 03:21 1 APPLIC Witch Carline 1 pad PRN PRN TOP 09/05/24 19:15 09/06/24 03:21 1 PAD Labetalol HCl 100 mg BID PO 09/05/24 22:00 09/06/24 09:59 100 MG Ibuprofen 600 mg Q6HP PRN PO 09/06/24 21:30 Acetaminophen 650 mg Q4HP PRN PO 09/06/24 21:30 Ondansetron HCl 4 mg Q4HPRN PRN PO 09/06/24 21:30 laboratory and microbiology Laboratory Tests 09/05/24 19:42 Test 09/05/24 19:42 Range/Units Serum Glucose 80 74-106 mg/dL Objective O: VSS Chest: heart sounds normal and lung sounds clear bilaterally Abd: soft, non-tender, fundus at U/firm/midline, active bowel sounds, no rebound or guarding Perineum: intact, no erythema/edema noted Ext: Non-tender, No edema, 2+ BLE DTRs Lochia: minimal See lab results Problems(with codes): (1) (normal spontaneous vaginal delivery) (2) Intact perineum (3) Chronic hypertension during Assessment/Plan A: 23yo now PPD#1 s/p Rh+ Rubella Immune Breast and formula feeding Pain control with PO medications Bowel regimen P: D/C home today Rx sent to pharmacy precautions and preeclampsia warning signs reviewed F/U with [facility] office in 1 week Plan discussed with: Patient, Spouse JAYSON RITCHIE CNM Sep 07, 2024 00:20
[2024-09-07] MEDS: IBUPROFEN 600 MG TAB PO PRN (00:21)
[2024-09-07 07:06] LABS: RPR Non Reactive (Non Reactive)
[2024-09-07] MEDS: DOCUSATE SOD 100 MG CAP PO ONE (07:29)
[2024-09-07] MEDS: ACETAMINOPHEN 325 MG TAB PO PRN (07:32)
[2024-09-07 08:23] LABS: Basophils # (auto) 0 10 ^3/uL (0-0.2); Basophils % (auto) 0.3 % (0.0-2.0); Eosinophils # (auto) 0.1 10 ^3/uL (0-0.8); Eosinophils % (auto) 0.5 % (0.0-7.0); Hematocrit 35.8 % (36.0-46.0); Hemoglobin 11.8 g/dL (12.2-16.2); Lymphocytes % (auto) 12.6 % (10.0-50.0); Mean Corpuscular Hgb Conc. 33.1 g/dL (32.0-36.0); Mean Corpuscular Volume 87.7 fL (80.0-100.0); Monocytes # (auto) 0.8 10 ^3/uL (0-1.3); Neutrophils # (auto) 12.9 10 ^3/uL (1.6-8.6); Neutrophils % (auto) 81.6 % (37.0-80.0); Platelet Count (auto) 255 10^3/uL (140-450); Red Blood Cells 4.08 10^6/uL (4.0-5.20); White Blood Cell 15.9 10^3/uL (4.4-10.8)
== END 2024-09-07 18:46 | disposition home or self-care (01) | DRG 560 ==
LOC: LDRP 19:05
PROVIDERS: ADMIT Obstetrics & Gynecology; ATTEND Obstetrics & Gynecology
PROC: 10E0XZZ Delivery of Products of Conception, External Approach (ICD-10-PCS; principal; 2024-09-06)
PROC: 3E033VJ Introduction of Other Hormone into Peripheral Vein, Percutaneous Approach (ICD-10-PCS; 2024-09-06)
PROC: 10907ZC Drainage of Amniotic Fluid, Therapeutic from Products of Conception, Via Natural or Artificial Opening (ICD-10-PCS; 2024-09-06)
PROC: 3E0R3BZ Introduction of Anesthetic Agent into Spinal Canal, Percutaneous Approach (ICD-10-PCS; 2024-09-06)
PROC: 00HU33Z Insertion of Infusion Device into Spinal Canal, Percutaneous Approach (ICD-10-PCS; 2024-09-06)
DX: O10.92 Unspecified pre-existing hypertension complicating childbirth (principal); Z37.0 Single live birth; D50.9 Iron deficiency anemia, unspecified; O99.02 Anemia complicating childbirth; Z3A.38 38 weeks gestation of pregnancy
CPT/HCPCS: 36415; 59025; 59409; 62282; 80053; 80307; 82570; 84156; 84550; 85025; 85610; 85730; 86592; 86780; 86803; 86850; 86900; 86901; 94760; 94762; 96360; 96361; 96365; 96366; G0378; J2590